=== PATIENT | male | born 1955 | race Caucasian/White ===

== ENCOUNTER 2016-03-29 07:17 | Outpatient (CLI) | payer BC ==
[2016-03-29 07:55] LABS: Hemoglobin A1c 5.4 % (4.0-6.0)
[2016-03-29 08:05] LABS: ALT (SGPT) 24 U/L (0-55); AST (SGOT) 27 U/L (5-34); Alkaline Phosphatase 77 U/L (40-150); Anion Gap 13 mmol/L (10-20); BUN (Urea Nitrogen) 23 mg/dL (8.4-25.7); Bilirubin, Direct 0.2 mg/dL (0.1-0.3); Bilirubin, Total 0.7 mg/dL (0.2-1.2); Calc. Creatinine Clearance 0 mL/min (70-130); Calcium 9.5 mg/dL (7.8-10.44); Carbon Dioxide 23 mmol/L (22-29); Chloride 109 mmol/L (98-107); Estimated GFR-MDRD 65; LDL Cholesterol, Calculated 106 mg/dL; Protein, Total 7.8 g/dL (6.0-8.3)
[2016-03-29 08:18] LABS: #Basophils 0.1 thou/uL (0.0-0.2); #Eosinphils 0.1 thou/uL (0.0-0.7); #Lymphocytes 2.6 thou/uL (1.20-3.40); #Monocytes 0.4 thou/uL (0.11-0.59); %Basophils 1.7 % (0.0-1.0); %Eosinophils 1.9 % (0.0-10.0); %Lymphocytes 41.7 % (21.0-51.0); %Monocytes 6.9 % (0.0-10.0); Hematocrit 42.9 % (42.0-52.0); Mean Platelet Volume 6.4 fL (7.4-10.4); Red Blood Cell (RBC) Count 4.56 mill/uL (4.70-6.10); White Blood Cell (WBC) Count 6.2 thou/uL (4.8-10.8)
== END 2016-03-29 07:18 | disposition home or self-care (01) ==
LOC: NAV LAB 07:17
PROVIDERS: ATTEND Family Medicine
DX: E29.1 Testicular hypofunction (principal); G47.00 Insomnia, unspecified; R51 Headache; M54.5 Low back pain; Z79.899 Other long term (current) drug therapy
CPT/HCPCS: 36415; 80048; 80061; 80076; 83036; 84403; 84443; 85025; G0103

== ENCOUNTER 2019-05-10 11:17 | Outpatient (CLI) | payer BC ==
[2019-05-10 12:03] LABS: #Basophils 0.1 thou/uL (0.0-0.2); #Eosinphils 0.1 thou/uL (0.0-0.7); #Lymphocytes 2.5 thou/uL (1.20-3.40); #Monocytes 0.8 thou/uL (0.11-0.59); #Neutrophils 5.1 thou/uL (1.40-6.50); %Basophils 0.8 % (0.0-1.0); %Monocytes 9.4 % (0.0-10.0); %Neutrophils 59.8 % (42.0-75.0); Hemoglobin 13.8 g/dL (14.0-18.0); Mean Corpuscular HGB CONC 33.9 g/dL (32.0-36.0); Mean Corpuscular Volume 97.3 fL (78.0-98.0); Platelet Count 351 thou/uL (130-400); RBC Distribution Width 12.8 % (11.5-14.5); Red Blood Cell (RBC) Count 4.17 mill/uL (4.70-6.10); White Blood Cell (WBC) Count 8.6 thou/uL (4.8-10.8)
--- NOTE | 2019-05-10 12:04 | RAD ---
LEFT KNEE 4 VIEWS: Date: 05/10/2019 HISTORY: Fall. Left knee pain. FINDINGS/IMPRESSION: There are postop changes of total knee arthroplasty in good position and alignment. No fracture or di slocation is seen. No perihardware lucency is identified to suggest loosening. POS: [facility]
[2019-05-10 12:12] LABS: Bilirubin Negative (Negative); Blood, Urine Trace (Negative); Clarity Clear (Clear); Glucose, Urine (Dipstick) Negative (Negative); Leukocyte Negative (Negative); Nitrite Negative (Negative); Protein, Urine (Dipstick) Negative (Neg-Trace); Urobilinogen 0.2 mg/dL (Less than 2)
[2019-05-10 12:14] LABS: ALT (SGPT) 23 U/L (8-55); AST (SGOT) 27 U/L (5-34); Albumin 4.4 g/dL (3.4-4.8); Alkaline Phosphatase 78 U/L (40-110); Anion Gap 15 mmol/L (10-20); BUN (Urea Nitrogen) 12 mg/dL (8.4-25.7); Calc. Creatinine Clearance 0 mL/min (70-130); Calcium 9.5 mg/dL (7.8-10.44); Carbon Dioxide 27 mmol/L (23-31); Chloride 100 mmol/L (98-107); Estimated GFR-MDRD 72; Globulin 2.7 g/dL (2.4-3.5); Glucose 129 mg/dL (80-115); Potassium 4.3 mmol/L (3.5-5.1); Protein, Total 7.1 g/dL (5.8-8.1); Sodium 138 mmol/L (136-145)
[2019-05-10 12:25] LABS: RBC/HPF 0-3 HPF (0-3); WBC/HPF None Seen HPF (0-3)
[2019-05-10 12:26] LABS: Bacteria/HPF Rare-Few HPF (None Seen); Squamous Epithelial 0-3 HPF (0-3)
[2019-05-10 12:28] LABS: Urine Culture Reflex No No
[2019-05-10 17:09] LABS: Hemoglobin A1c 5.2 % (4.0-6.0)
== END 2019-05-10 11:18 | disposition home or self-care (01) ==
LOC: NAV LAB 11:17
PROVIDERS: ATTEND Family Medicine
DX: R55 Syncope and collapse (principal); M25.562 Pain in left knee; Z98.890 Other specified postprocedural states
CPT/HCPCS: 36415; 80053; 81001; 83036; 84443; 85025

== ENCOUNTER 2020-03-13 13:49 | Emergency (ER) | payer BC ==
[2020-03-13] MEDS ORDERED: Lidocaine 1% w/Epinephrine 1:100K 30 ML VIAL ONE (14:00)
[2020-03-13] MEDS ORDERED: Boostrix 0.5 ML (Tdap) VIAL ONE (14:23)
[2020-03-13] MEDS ORDERED: Bacitracin 1 PK ONE (15:42)
[2020-03-13] MEDS ORDERED: Cephalexin 250 MG CAP ONE (15:50)
--- NOTE | 2020-03-13 16:33 | RAD ---
LEFT SHOULDER THREE VIEWS: History: Shoulder pain FINDINGS: No fracture or dislocation. Minimal degenerative changes at the shoulder and AC joint. There is benig n cortical defect involving the proximal humerus. IMPRESSION: No acute process. POS: [facility]
== END 2020-03-13 15:55 | disposition home or self-care (01) ==
LOC: NAV ERS 13:49
DX: S51.812A Laceration without foreign body of left forearm, initial encounter (principal); S43.402A Unspecified sprain of left shoulder joint, initial encounter; S00.83XA Contusion of other part of head, initial encounter; K90.0 Celiac disease; E78.5 Hyperlipidemia, unspecified; Z85.828 Personal history of other malignant neoplasm of skin; V86.59XA Driver of other special all-terrain or other off-road motor vehicle injured in nontraffic accident, initial encounter
CPT/HCPCS: 12005; 90471; 90715

== ENCOUNTER 2022-03-01 12:25 | Outpatient (CLI) | payer MEDICARE | END 2022-03-01 12:26 | disposition home or self-care (01) | LOC: NAV RAD 12:25 | PROVIDERS: ATTEND Family Medicine | DX: R63.4 Abnormal weight loss (principal); R05.3 Chronic cough | CPT/HCPCS: 71046 ==

== ENCOUNTER 2024-01-10 16:55 | Outpatient (CLI) | payer MEDICARE | END 2024-01-10 16:56 | disposition home or self-care (01) | LOC: NAV RAD 16:55 | PROVIDERS: ATTEND Family Medicine | DX: M79.644 Pain in right finger(s) (principal); M18.11 Unilateral primary osteoarthritis of first carpometacarpal joint, right hand ==